=== PATIENT | female | born 1960 | race Caucasian/White ===

== ENCOUNTER 2021-04-11 10:31 | Emergency (ER) | payer OTHER ==
--- NOTE | 2021-04-11 11:07 | XRAY Report ---
PROCEDURE: Chest 1 View X-Ray INDICATIONS: Chest Pain TECHNIQUE: One view of the chest was acquired. COMPARISON: None FINDINGS: Surgical changes and devices: None. Lungs and pleura: No pleural effusions or pneumothorax. Lungs are clear. Mediastinum: Mediastinal contours appear normal. Heart size is normal. Bones and chest wall: No suspicious bony lesions. Overlying soft tissues appear unremarkable. IMPRESSION: No acute cardiopulmonary pathology. Reviewed by: Ken Anderson MD on 04/11/2021 11:06 AM PDT Approved by: Ken Anderson MD on 04/11/2021 11:06 AM PDT Station ID: [id number]
[2021-04-11 11:22] LABS: BASOPHILS # (AUTO) 0.1 10^3/uL (0.0-0.1); BASOPHILS % (AUTO) 1.1 %; EOSINOPHILS # (AUTO) 0.1 10^3/uL (0.0-0.7); EOSINOPHILS % (AUTO) 1.1 %; HCT - HEMATOCRIT 43.4 % (37.0-47.0); HGB - HEMOGLOBIN 14.1 g/dL (12.0-16.0); LYMPHOCYTES # (AUTO) 1.1 10^3/uL (1.5-3.5); LYMPHOCYTES % (AUTO) 17.1 %; MEAN CORPUSCULAR HEMOGLOBIN 31.1 pg (27.0-31.0); MEAN CORPUSCULAR HGB CONC 32.5 g/dL (32.0-36.0); MEAN CORPUSCULAR VOLUME 95.8 fL (81.0-99.0); MEAN PLATELET VOLUME 10.1 fL (7.9-10.8); MONOCYTES # (AUTO) 0.5 10^3/uL (0.0-1.0); MONOCYTES % (AUTO) 7.5 %; NEUTROPHILS # (AUTO) 4.5 10^3/uL (1.5-6.6); PLT - PLATELET COUNT 211 10^3/uL (130-450); RED BLOOD COUNT 4.53 10^6/uL (4.20-5.40); RED CELL DISTRIBUTION WIDTH 13.2 % (12.0-15.0); WHITE BLOOD COUNT 6.1 x10^3/uL (4.8-10.8)
[2021-04-11 11:38] LABS: ALBUMIN 4.5 g/dL (3.2-5.5); ALBUMIN/GLOBULIN RATIO 1.6 (1.0-2.2); BILIRUBIN,TOTAL 1.1 mg/dL (0.2-1.0); CALCIUM 9.8 mg/dL (8.5-10.3); CREATININE 0.9 mg/dL (0.4-1.0); TOTAL PROTEIN 7.3 g/dL (6.7-8.2)
[2021-04-11] MEDS ORDERED: SODIUM CHLORIDE 0.9% 1,000 ML IV STA (12:29)
--- NOTE | 2021-04-11 12:38 | ED Physician Documentation ---
History of Present Illness - Stated complaint Stated Complaint: CHEST PX/LIGHT HEADED - Chief complaint Chief Complaint: Cardiac - History obtained from History obtained from: Patient - Additonal information Additional information: 60-year-old woman, non-smoker, Previously healthy, presents with sharp intermittent left-sided chest pain lasting for a couple of seconds at a time for the past 2 weeks without exacerbating or relieving factors. She also has had associated lightheadedness intermittently.Chest pain is nonradiating, mild, currently 0 out of 10. Denies cough, fever, leg swelling, nausea, diaphoresis. Review of Systems Ten Systems: 10 systems reviewed and negative Constitutional: denies: Fever, Chills Cardiac: reports: Chest pain / pressure. denies: Palpitations Respiratory: denies: Dyspnea, Cough GI: denies: Abdominal Pain, Nausea PD PAST MEDICAL HISTORY - Present Medications Home Medications: Ambulatory Orders Medication Instructions Recorded Confirmed No Known Home Medications 04/11/21 04/11/21 - Allergies Allergies/Adverse Reactions: Allergies Allergy/AdvReac Type Severity Reaction Status Date / Time diphenhydramine Allergy Dizziness Verified 04/11/21 10:46 [From Benadryl] codeine AdvReac Nausea Verified 04/11/21 10:46 PD ED PE NORMAL - Vitals Vital signs reviewed: Yes - General General: Alert and oriented X 3, No acute distress, Well developed/nourished - HEENT HEENT: Atraumatic, PERRL, EOMI - Neck Neck: Supple, no meningeal sign - Cardiac Cardiac: RRR - Respiratory Respiratory: No respiratory distress, Clear bilaterally - Abdomen Abdomen: Non tender, Non distended - Derm Derm: Normal color, Warm and dry - Extremities Extremities: No deformity - Neuro Neuro: Alert and oriented X 3 - Psych Psych: Normal mood, Normal affect Results - Vitals Vitals: Vital Signs - 24 hr 04/11/21 04/11/21 04/11/21 10:42 12:18 12:48 Temperature 36.8 C Heart Rate 92 70 Heart Rate [ 94 Sitting] Heart Rate [ 96 Standing] Heart Rate [ 87 Supine] Respiratory 16 18 Rate Blood Pressure 147/84 H 150/85 H Blood Pressure 148/81 H [Sitting] Blood Pressure 143/90 H [Standing] Blood Pressure 139/77 H [Supine] O2 Saturation 100 99 Oxygen O2 Source Room air - Labs Labs: Laboratory Tests 04/11/21 04/11/21 04/11/21 11:07 11:07 11:07 WBC 6.1 RBC 4.53 Hgb 14.1 Hct 43.4 MCV 95.8 MCH 31.1 H MCHC 32.5 RDW 13.2 Plt Count 211 MPV 10.1 Neut # (Auto) 4.5 Lymph # (Auto) 1.1 L [place] # (Auto) 0.5 Eos # (Auto) 0.1 Baso # (Auto) 0.1 Absolute Nucleated RBC 0.00 Nucleated RBC % 0.0 Sodium 137 Potassium 4.0 Chloride 102 Carbon Dioxide 26 Anion Gap 9.0 BUN 21 H Creatinine 0.9 Estimated GFR (MDRD) 64 L Glucose 103 H Calcium 9.8 Total Bilirubin 1.1 H AST 25 ALT 21 Alkaline Phosphatase 62 Troponin I High Sens < 2.3 L Total Protein 7.3 Albumin 4.5 Globulin 2.8 Albumin/Globulin Ratio 1.6 Lipase 37 PD MEDICAL DECISION MAKING - ED course ED course: 60yF presented with atypical chest pain in the emergency department, nonexertional, worse with position changes. workup in ED noncontributory. HEART score 1 (age). patient will f/u with pmd. she has referral to cardiology this week. return precautions given. Departure - Departure Disposition: 01 Home, Self Care Clinical Impression: Chest pain Condition: Good Instructions: ED Chest Pain Atypical Unkn Cause Comments: You are seen in the emergency department for chest pain and lightheadedness. Your vital signs, physical exam, and lab work as well as chest x-ray and EKG were normal. 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 Return to the emergency department if you experience any new or worsening symptoms or have other concerns. Discharge Date/Time: 04/11/21 13:20
[2021-04-11 12:49] VITALS: BP 150/85
== END 2021-04-11 13:20 | disposition home or self-care (01) ==
LOC: ED 10:31
DX: R07.89 Other chest pain (principal); R42 Dizziness and giddiness
CPT/HCPCS: 36415; 80053; 83690; 84484; 85025; 93005; 99284